=== PATIENT | female | born 1965 | race Caucasian/White ===

== ENCOUNTER 2016-05-12 06:33 | Day surgery (SDC) | payer BC ==
--- NOTE | ~2016-05-12 | EGD ---
EGD REPORT [facility] [address] [id number] NAME: NOMAN POSADA : 63 STATUS : REG [facility] [place] PAT#: [id number] AGE: 50 ADM/REG DATE : 05/12/16 MR#: [id number] REPORT SERV DATE: 05/12/16 DICTATED BY: DATE: REPORT STATUS : Draft TRANSCRIBED BY: [employer] DATE: 05/12/16 [facility] Patient Name: Noman Posada Date of : 1965 Attending MD: ESTEFANI GILLILAND MD Procedure Date No Time: 05/12/2016 Procedure: Colonoscopy Indications: Screening for colorectal malignant neoplasm Referring MD: ERIN GUNN Medicines: Monitored Anesthesia Care Complications: No immediate complications. Procedure: Pre-Anesthesia Assessment: - ASA Grade Assessment: After I obtained informed consent, the scope was passed under direct vision. Throughout the procedure, the patient's blood pressure, pulse, and oxygen saturations were monitored continuously. The PCF [id number] was introduced through the anus and advanced to the cecum, identified by appendiceal orifice and ileocecal valve. The colonoscopy was performed without difficulty. The patient tolerated the procedure well. The quality of the bowel preparation was excellent. Findings: The perianal and digital rectal examinations were normal. The colon (entire examined portion) appeared normal. There is no endoscopic evidence of diverticula, inflammation, mass, polyps, ulcerations or angioectasia in the entire colon. No additional abnormalities were found on retroflexion. Impression: - The entire examined colon is normal. Recommendation: - Patient has a contact number available for emergencies. The signs and symptoms of potential delayed complications were discussed with the patient. Return to normal activities tomorrow. Written discharge instructions were provided to the patient. - High fiber diet indefinitely. - Discharge patient to home. - Continue present medications. - Repeat colonoscopy in 10 years for screening purposes. Procedure Code(s): --- Professional --- G0121, Colorectal cancer screening; colonoscopy on individual not meeting criteria for high risk EGD REPORT [facility] [address] [id number] NAME: NOMAN POSADA : [birth year] STATUS : REG [facility] [place] PAT#: [id number] AGE: 50 ADM/REG DATE : 05/12/16 MR#: [id number] REPORT SERV DATE: 05/12/16 DICTATED BY: DATE: REPORT STATUS : Draft TRANSCRIBED BY: [employer] DATE: 05/12/16 Diagnosis Code(s): --- Professional --- Z12.11, Encounter for screening for malignant neoplasm of colon CPT copyright 2013 [employer]. All rights reserved. The codes documented in this report are preliminary and upon research professional review may be revised to meet current compliance requirements. ESTEFANI GILLILAND MD 05/12/2016 12:40 PM This report has been signed electronically. Number of Addenda: 0 Note Initiated On: 05/12/2016 7:48 AM Scope Withdrawal Time 0 hours 10 minutes 49 seconds [id number] [id number]
[~2016-05-12 06:33] MED LIST: ASAB PO; CO Q-10200 MG PO; LIPITOR40 PO; MULTIPLE VIT PO; PRILOSEC40 MG PO; SINGULAIR1 PO; TART CHERRY; TUMERIC
== END 2016-05-12 23:59 | disposition home or self-care (01) ==
LOC: DMU 06:33
PROVIDERS: Internal Medicine Gastroenterology
PROC: 0DJD8ZZ Inspection of Lower Intestinal Tract, Via Natural or Artificial Opening Endoscopic (ICD-10-PCS; principal; 2016-05-12 08:30)
DX: Z12.11 Encounter for screening for malignant neoplasm of colon (principal); I10 Essential (primary) hypertension; M19.90 Unspecified osteoarthritis, unspecified site; Z88.8 Allergy status to other drugs, medicaments and biological substances; Z79.82 Long term (current) use of aspirin; Z79.899 Other long term (current) drug therapy; Z98.890 Other specified postprocedural states